=== PATIENT | male | born 1970 | race Caucasian/White ===

== ENCOUNTER 2025-04-12 08:33 | Day surgery (SDC) | payer OTHER ==
[2025-04-10 15:16] VITALS: BMI 29.5
[2025-04-12 09:27] VITALS: RESP 19; TEMP 98
[2025-04-12 09:29] VITALS: BP 110/66; PULSE 58
== END 2025-04-12 09:40 | disposition home or self-care (01) ==
LOC: FASU-ENDO 08:33
PROVIDERS: ATTEND Internal Medicine Gastroenterology
PROC: 0DJD8ZZ Inspection of Lower Intestinal Tract, Via Natural or Artificial Opening Endoscopic (ICD-10-PCS; principal; 2025-04-12 08:55)
DX: Z12.11 Encounter for screening for malignant neoplasm of colon (principal); K57.30 Diverticulosis of large intestine without perforation or abscess without bleeding